=== PATIENT | male | born 1950 ===

== ENCOUNTER 2024-12-02 06:18 | Day surgery (SDC) | payer MEDICARE, OTHER ==
[~2024-12-02] VITALS: Ht 185.4 cm; Wt 89.8 kg
[~2024-12-02 06:18] MED LIST: Lidocaine 1%-Epineph 1:100000 20 ML MDV ONE; NS 500 ML IV ONE; Sodium Bicarb 8.4% 1 MEQ/ML 50 ML Vial ONE
[2024-12-02] MEDS ORDERED: Lidocaine 1%-Epineph 1:100000 20 ML MDV ONE (06:30)
[2024-12-02] MEDS ORDERED: CeFAZolin Sodium 2,000 MG VIAL ONE ×2 (06:38→07:36)
[2024-12-02] MEDS ORDERED: DEPO-TESTO200 MG/18 IM (06:50)
[2024-12-02] MEDS ORDERED: ACYCLOVIR400 MG PO (06:50)
[2024-12-02] MEDS ORDERED: PANTOPRAZOLE SO2010 PO (06:50)
[2024-12-02] MEDS ORDERED: ROSUVASTATIN CAL5 MG PO (06:50)
[2024-12-02] MEDS ORDERED: NS 500 ML IV ONE (06:58)
--- NOTE | 2024-12-02 07:10 | NUR ---
12/02/[address] [facility] 0704: TIMEOUT FOR INJECTION 0705: PRE-OP INJECTION BY DR ROBERT OF 10 CC LIDOCAINE 1% WITH EPI 1:100;000 WITH 1 CC SODIUM BICARB. PT TOLERATED WELL.
[2024-12-02] MEDS ORDERED: NS 50 ML IV ONE (07:29)
[2024-12-02 07:53] VITALS: BP 131/86
--- NOTE | 2024-12-02 08:26 | NUR ---
12/02/24 0826 [place] [facility] REPORTS NO PAIN AND IS AGREEABLE TO D/C HOME.
== END 2024-12-02 08:27 | disposition home or self-care (01) ==
LOC: ORSCSDS 06:18
PROVIDERS: Orthopaedic Surgery
PROC: 0JCK0ZZ Extirpation of Matter from Left Hand Subcutaneous Tissue and Fascia, Open Approach (ICD-10-PCS; principal; 2024-12-02 07:30)
DX: S60.451A Superficial foreign body of left index finger, initial encounter (principal); M79.642 Pain in left hand; I10 Essential (primary) hypertension; Z79.899 Other long term (current) drug therapy
CPT/HCPCS: J0690; J7040